=== PATIENT | male | born 1955 | race Caucasian/White ===

== ENCOUNTER 2017-12-07 05:11 | Emergency (ER) | payer BC ==
[~2017-12-07] VITALS: Ht 180.3 cm; Wt 79.4 kg
[2017-12-07] MEDS ORDERED: ZOCOR20 MG PO (05:17)
[2017-12-07 05:46] LABS: ABSOLUTE NEUTROPHILS 7.3 thou/uL (1.4-8.2); BASOPHILS 0.7 % (0.0-2.0); EOSINOPHILS 1.6 % (0.0-3.0); HEMATOCRIT 49.1 % (42.0-52.0); HEMOGLOBIN 16.6 gm/dL (14.0-18.0); LYMPHOCYTES 15.8 % (24.0-44.0); MCH 29.2 pg (26.0-34.0); MCHC 33.8 g/dL (28.0-37.0); MCV 86.3 fL (80.0-100.0); MONOCYTES 8.8 % (1.0-8.0); PLATELET COUNT 206 thou/uL (150-400); POLYS 73.1 % (36.0-66.0); RBC 5.69 mil/uL (4.50-6.00); RDW 13.4 % (10.5-14.5)
[2017-12-07 05:56] LABS: CALCIUM 9.4 mg/dL (8.5-10.1); CREATININE 1.3 mg/dL (0.7-1.3)
[2017-12-07 06:02] LABS: ALBUMIN 4.4 g/dL (3.4-5.0); TOTAL PROTEIN 7.7 g/dL (6.4-8.2)
[2017-12-07] MEDS ORDERED: ZOFRAN ODT8 MG PO (06:10)
[2017-12-07] MEDS ORDERED: FLOMAX0.4 MG PO (06:10)
[2017-12-07] MEDS ORDERED: TORADOL 10 MG T10 MG PO (06:10)
== END 2017-12-07 06:58 | disposition home or self-care (01) ==
LOC: ER 05:11
PROVIDERS: Emergency Medicine
DX: N20.0 Calculus of kidney (principal)